=== PATIENT | female | born 1990 | race Caucasian/White ===

== ENCOUNTER 2016-06-04 16:51 | Emergency (ER) | payer MEDICAID, OTHER ==
[~2016-06-04] VITALS: Ht 162.6 cm; Wt 154.2 kg
[~2016-06-04 16:51] MED LIST: ACHYD1T PO; DCS100C PO; IBP600T1 PO; LANS30CA PO; ONDA-42 SL; PNV11TAB PO; VIT
--- OUTSIDE RECORDS SUMMARY | 2016-06-04 16:56 | XMS REPORT ---
Author Author ELMA RAYA [facility] eClinicalWorks Address Unknown Phone Unavailable Care Team Providers Care Product Communications Manager Name Role Phone ELMA RAYA CP Unavailable Allergies No Known Allergies Problems Problem Type Condition Code Onset Dates Condition Status Assessment Family history of diabetes mellitus Z83.3 Active Problem Dysthymia F34.1 Active Problem Amenorrhea N91.2 Active Problem Encounter to establish care Z76.89 Active Problem Family history of diabetes mellitus Z83.3 Active Assessment Amenorrhea N91.2 Active Problem Morbid obesity, unspecified obesity type E66.01 Active Problem History of open heart surgery Z98.89 Active Medications No Known Medications Procedures Procedure Coding System Code Date ASSAY THYROID STIM HORMONE CPT-4 03486 Dec 25, 2015 ASSAY OF INSULIN CPT-4 95031 Dec 25, 2015 ASSAY OF TOTAL TESTOSTERONE CPT-4 09365 Dec 25, 2015 COMPREHEN METABOLIC PANEL CPT-4 92347 Dec 25, 2015 COMPLETE CBC W/AUTO DIFF WBC CPT-4 77797 Dec 25, 2015 VENIPUNCT, ROUTINE* CPT-4 80064 Dec 25, 2015 GLYCATED HEMOGLOBIN TEST CPT-4 16699 Dec 25, 2015 Results No Known Results Summary Purpose eClinicalWorks Submission
[2016-06-04] MEDS ORDERED: RT-ALBUTEROL/IPRATROPIUM 3 ML (DUONEB) VIAL INH ONE ×3 (17:00→17:15)
--- NOTE | 2016-06-04 17:24 | ED Cough/URI ---
General Chief Complaint: Respiratory Problems Stated Complaint: TROUBLE BREATHING Nursing Triage Note: PT C/O COUGH, CONGESTION X 3-4 DAYS. HEAVINESS ON CHEST WORSENING THROUGH TODAY. Source: patient Exam Limitations: no limitations History of Present Illness Time seen by provider: 17:00 Initial Comments 20 scheduled. Patient presents to the emergency department complaints of 3-4 day onset of cough and congestion. Reports progressively worsening shortness of breath. Patient denies a history of smoking, but states her boyfriend does smoke around her. Today reports difficulty taking deep breath, rib pain with coughing, and heaviness on the chest. Patient reports heaviness is due to difficulty taking a full breath. Patient denies fever, but has had chills. Denies a history of asthma. Patient works at [employer] and states several residents have had similar symptoms. Timing/Duration: getting worse, other (3-4 days) Allergies and Home Medications Allergies Coded Allergies: No Known Drug Allergies (Unverified , 06/09/14) Home Medications Albuterol Sulfate 6.7 Gm Hfa.aer.ad #1 2 PUFF IH Q4H PRN PRN SHORTNESS OF BREATH Prescribed by: BLACK AKBAR on 06/04/161854 Azithromycin 250 Mg Tablet #6 250 MG PO UD TAKE 2 TABLETS TODAY, THEN TAKE 1 TABLET DAILY FOR 4 MORE DAYS Prescribed by: BLACK AKBAR on 06/04/161854 Docusate Sodium 100 Mg Cap #40 100 MG PO BID PRN PRN CONSTIPATION Prescribed by: AYAKA HAND on 07/18/14 1024 Hydrocodone Bit/Acetaminophen 1 Ea Tab #50 1-2 EA PO Q3HR PRN PRN PAIN Prescribed by: AYAKA HAND on 07/18/14 1024 Ibuprofen 600 Mg Tab #60 600 MG PO Q6H PRN PRN PAIN Prescribed by: AYAKA HAND on 07/18/14 1024 Lxo474/Iron Fumarate/FA/Dss 1 Each Tablet 1 EACH PO DAILY (Reported) Prednisone 20 Mg Tab #10 40 MG PO DAILY Prescribed by: BLACK AKBAR on 06/04/161854 Constitutional: chillsNo fever, malaise other (fatigue) EENTM: nose congestion throat painNo ear pain Respiratory: see HPI coughNo hemoptysis, short of breath wheezing other ( unable to expel phlegm) Cardiovascular: No chest pain, No edema, No palpitations, No syncope Gastrointestinal: No abdominal pain, No constipation, No diarrhea, loss of appetiteNo nausea, No vomiting Genitourinary: no symptoms reported Musculoskeletal: no symptoms reported Skin: no symptoms reported Psychiatric/Neurological: No Symptoms Reported Immunological/Allergic: no symptoms reported All Other Systems Reviewed Negative Unless Noted: Yes (Negative excepted noted.) Past Mgnzomw-Jdogkh-Faehnw Hx Patient Social History Alcohol Use: Rarely Uses Recreational Drug Use: No Smoking Status: Never a Smoker (patient is exposed to second hand smoke.) Recent Foreign Travel: No Contact w/Someone Who Travel: No Recent Infectious Disease Expo: No Recent Hopitalizations: No Physical Abuse Screen: No Sexual Abuse: No Immunizations Up To Date Tetanus Booster (TDap): Less than 5yrs Date of Influenza Vaccine: Feb 16, 2016 Seasonal Allergies Seasonal Allergies: No Surgeries HX Surgeries: Yes (OPEN HEART FOR LSD) Surgeries: Section, Gallbladder Respiratory Hx Respiratory Disorders: No Cardiovascular Hx Cardiac Disorders: Yes (PTGV,LSD) Neurological Hx Neurological Disorders: No Reproductive System Hx Reproductive Disorders: No Genitourinary Hx Genitourinary Disorders: No Gastrointestinal Hx Gastrointestinal Disorders: Yes Gastrointestinal Disorders: Gastroesophageal Reflux Musculoskeletal Hx Musculoskeletal Disorders: No Endocrine Hx Endocrine Disorders: No HEENT HX ENT Disorders: Yes (GLASSES) Cancer Hx Cancer: No Psychosocial Hx Psychiatric Problems: No Integumentary HX Skin/Integumentary Disorder: No Blood Transfusions Hx Blood Disorders: No Adverse Reaction to a Blood Tr: No Reviewed Nursing Assessment Reviewed/Agree w Nursing PMH: Yes Family Medical History Significant Family History: No Pertinent Family Hx Family Medial History: FH: lung cancer 19 FATHER Respiratory disorder 19 FATHER Physical Exam Vital Signs Vital Sign - Last 12Hours 06/04/16 06/04/16 16:59 17:06 Temp 99.1 Pulse 119 Resp 24 B/P 148/79 Pulse Ox 93 Capillary Refill : Less Than 3 Seconds General Appearance: WD/WN mild distress obese Eyes: Bilateral Eye EOMI, Bilateral Eye Normal Inspection, Bilateral Eye PERRL HEENT: PERRL/EOMI pharyngeal erythema other (Lt TM normal. Rt external ear canal impacted with cerumen. Positive nasal congestion.) Neck: non-tender supple normal inspection Respiratory: respiratory distress (mild respiratory distress) decreased breath sounds other (anterior chest tender to palpation.) Cardiovascular: regular rate, rhythm no murmur Gastrointestinal: normal bowel sounds non tender softNo distended Extremities: no pedal edema normal capillary refill Neurologic/Psychiatric: alert oriented x 3 other (anxious) Skin: normal color warm/dryNo cyanosis, No cool, No diaphoresis, No mottled, No pallor Progress/Results/Core Measures Results/Orders Lab Results Laboratory Tests Test 06/04/16 17:20 Range/Units Alanine Aminotransferase (ALT/SGPT) 17 0-55 U/L Albumin 3.9 3.2-4.5 G/DL Alkaline Phosphatase 55 40-136 U/L Anion Gap 9 5-14 MMOL/L Aspartate Amino Transf (AST/SGOT) 14 5-34 U/L BUN/Creatinine Ratio 10 Basophils # (Auto) 0.0 0.0-0.1 10^3/uL Basophils (%) (Auto) 0 0-10 % Blood Urea Nitrogen 9 7-18 MG/DL Calcium Level 8.7 8.5-10.1 MG/DL Carbon Dioxide Level 24 21-32 MMOL/L Chloride Level 100 98-107 MMOL/L Creatinine 0.91 0.60-1.30 MG/DL Eosinophils # (Auto) 0.0 0.0-0.3 10^3/uL Eosinophils (%) (Auto) 0 0-10 % Estimat Glomerular Filtration Rate > 60 Glucose Level 113 H 70-105 MG/DL Hematocrit 37 35-52 % Hemoglobin 11.5 11.5-16.0 G/DL Lymphocytes # (Auto) 3.0 1.0-4.0 X 10^3 Lymphocytes (%) (Auto) 31 12-44 % Mean Corpuscular Hemoglobin 26 25-34 PG Mean Corpuscular Hemoglobin Concent 31 L 32-36 G/DL Mean Corpuscular Volume 83 80-99 FL Mean Platelet Volume 9.1 7.4-10.4 FL Monocytes # (Auto) 0.7 0.0-1.0 X 10^3 Monocytes (%) (Auto) 7 0-12 % Neutrophils # (Auto) 5.9 1.8-7.8 X 10^3 Neutrophils (%) (Auto) 61 42-75 % Platelet Count 149 130-400 10^3/uL Potassium Level 3.8 3.6-5.0 MMOL/L Red Blood Count 4.40 4.35-5.85 10^6/uL Red Cell Distribution Width 14.7 H 10.0-14.5 % Serum Test, Qualitative NEGATIVE NEGATIVE Sodium Level 133 L 135-145 MMOL/L Total Bilirubin 0.7 0.1-1.0 MG/DL Total Protein 7.3 6.4-8.2 G/DL White Blood Count 9.6 4.3-11.0 10^3/uL Micro Results Microbiology 06/04/16 Influenza Types A,B Antigen (JOSEFINA) - Final, Complete My Orders Orders-BLACK AKBAR PA Albuterol/Ipra Inhalation Soln (Duoneb I (06/04/16 17:00) Svn Sm Volume Nebulizer Rt-Rfs (06/04/16 16:58) Saline Lock/Iv-Start (06/04/16 17:08) Ekg Tracing (06/04/16 17:08) Monitor-Rhythm Ecg Trace Only (06/04/16 17:08) Cbc With Automated Diff (06/04/16 17:08) Comprehensive Metabolic Panel (06/04/16 17:08) Influenza A And B Antigens (06/04/16 17:08) Chest 1 View, Ap/Pa Only (06/04/16 17:08) Albuterol/Ipra Inhalation Soln (Duoneb I (06/04/16 17:15) Svn Sm Volume Nebulizer Rt-Rfs (06/04/16 17:12) Albuterol/Ipra Inhalation Soln (Duoneb I (06/04/16 17:15) Svn Sm Volume Nebulizer Rt-Rfs (06/04/16 17:12) Hcg,Qualitative Serum (06/04/16 17:16) Medications Given in ED Current Medications Medications Dose Ordered Sig/Reba Route Start Time Stop Time Status Last Admin Dose Admin Albuterol/ Ipratropium 3 ml ONCE ONCE INH 06/04/16 17:00 06/04/16 17:01 DC 06/04/16 17:05 3 ML Albuterol/ Ipratropium 3 ml ONCE ONCE INH 06/04/16 17:15 06/04/16 17:16 DC 06/04/16 17:15 3 ML Albuterol/ Ipratropium 3 ml ONCE ONCE INH 06/04/16 17:15 06/04/16 17:16 DC 06/04/16 17:15 3 ML Vital Signs/I&O Vital Sign - Last 12Hours 06/04/16 06/04/16 06/04/16 06/04/16 16:59 17:06 17:15 17:25 Temp 99.1 Pulse 119 Resp 24 B/P 148/79 Pulse Ox 93 94 94 Blood Pressure Mean: 102 ECG Initial ECG Impression Date: Jun 04, 2016 Initial ECG Impression Time: 17:00 Initial ECG Rate: 117 Initial ECG Rhythm: S.Tach Initial ECG Comparisson: No Previous ECG Available Comment sinus tachycardia. No STEMI. ECG reviewed and discussed with Maurice Borjas MD. Diagnostic Imaging Diagonstic Imaging: Xray Plain Films/CT/US/NM/MRI: chest Comments FINDINGS: Cardiomegaly with mildly increased pulmonary vascularity. No focal pulmonary opacity, pleural effusion or pneumothorax. Osseous structures are unremarkable. IMPRESSION: 1. Mild cardiomegaly and increased pulmonary vascularity. 2. No focal pulmonary opacities. Dictated on workstation # [id number] Reviewed: Reviewed by Me (radiology report reviewed by me) Departure Communication Progress Notes 1825 patient shows improved breath sounds bilaterally. Increased aeration bilaterally. Patient reports overall feeling much better. Patient is alert and oriented 3, no acute distress. Chest x-ray pending. 1850 all laboratory findings and diagnostic study findings discussed with the patient. Patient denies shortness of air, chest pain, dizziness. Plan for discharge to home. Impression Impression: Primary Impression: Acute bronchitis Qualified Code: J20.9 - Acute bronchitis, unspecified Disposition: 01 HOME, SELF-CARE Condition: Improved Departure-Patient Inst. Decision time for Depature: 18:52 Referrals: NO,LOCAL PHYSICIAN (PCP/Family) Primary Care Physician Patient Instructions: Acute Bronchitis, Adult (DC) Add. Discharge Instructions: All discharge instructions reviewed with patient and/or family. Voiced understanding. Medications as instructed. Tylenol extra strength over-the- counter as needed for fever or body aches. Ibuprofen 800 mg by mouth every 8 hours as needed for pain or body aches. Drink plenty of fluids. Cool humidifier. [id number] decongestants and and histamines if needed. Follow-up with your family practitioner of choice if no improvement in symptoms in 3-5 days, call for appointment time if needed. Return to the emergency department immediately for worsened shortness of air, fever, vomiting, difficulty swallowing, shortness of air with activity, or any other concerns. Scripts Prednisone 20 Mg Tab40 Mg PO DAILY #10 TAB Ref 0 Prov:BLACK AKBAR 06/04/16 Azithromycin (Zithromax)250 Mg [id number] Mg PO UD #6 TAB Ref 0 TAKE 2 TABLETS TODAY, THEN TAKE 1 TABLET DAILY FOR 4 MORE DAYS Prov:BLACK AKBAR 06/04/16 Albuterol Sulfate (Proventil Hfa)6.7 Gm Hfa.aer.ad2 Puff IH Q4H PRN SHORTNESS OF BREATH #1 EA Ref 0 Prov:BLACK AKBAR 06/04/16 Work/School Note: Local [employer] Staff Listing, Work Release Form Date Seen in the Emergency Department: Jun 04, 2016 Return to Work: Jun 06, 2016 Restrictions: No Restrictions BLACK AKBAR Jun 04, 2016 17:24
[2016-06-04 17:32] LABS: BASOPHILS % (AUTO) 0 % (0-10); EOSINOPHILS % (AUTO) 0 % (0-10); LYMPHOCYTES % (AUTO) 31 % (12-44); MEAN CORPUSCULAR HEMOGLOBIN 26 PG (25-34); MEAN CORPUSCULAR HGB CONC 31 G/DL (32-36); MEAN CORPUSCULAR VOLUME 83 FL (80-99); MEAN PLATELET VOLUME 9.1 FL (7.4-10.4); MONOCYTES # (AUTO) 0.7 X 10^3 (0.0-1.0); MONOCYTES % (AUTO) 7 % (0-12); NEUTROPHILS # (AUTO) 5.9 X 10^3 (1.8-7.8); NEUTROPHILS % (AUTO) 61 % (42-75); PLATELET COUNT 149 10^3/uL (130-400); RED CELL DISTRIBUTION WIDTH 14.7 % (10.0-14.5); WHITE BLOOD COUNT 9.6 10^3/uL (4.3-11.0)
[2016-06-04 17:49] LABS: ALANINE AMINOTRANSFERASE 17 U/L (0-55); ALBUMIN 3.9 G/DL (3.2-4.5); ANION GAP 9 MMOL/L (5-14); ASPARTATE AMINO TRANSFERASE 14 U/L (5-34); BILIRUBIN,TOTAL 0.7 MG/DL (0.1-1.0); BLOOD UREA NITROGEN 9 MG/DL (7-18); BUN/CREATININE RATIO 10; CALCIUM 8.7 MG/DL (8.5-10.1); CARBON DIOXIDE 24 MMOL/L (21-32); CHLORIDE 100 MMOL/L (98-107); CREATININE SERUM 0.91 MG/DL (0.60-1.30); GFR ESTIMATED > 60; GLUCOSE 113 MG/DL (70-105); POTASSIUM 3.8 MMOL/L (3.6-5.0); SODIUM 133 MMOL/L (135-145); TOTAL PROTEIN 7.3 G/DL (6.4-8.2)
--- NOTE | 2016-06-04 18:40 | Diagnostic Imaging Report ---
EXAM: CHEST 1 VIEW, AP/PA ONLY INDICATION: Cough. Congestion. COMPARISON: None. FINDINGS: Cardiomegaly with mildly increased pulmonary vascularity. No focal pulmonary opacity, pleural effusion or pneumothorax. Osseous structures are unremarkable. IMPRESSION: 1. Mild cardiomegaly and increased pulmonary vascularity. 2. No focal pulmonary opacities. Dictated by: Dictated on workstation # [id number]
[2016-06-04] MEDS ORDERED: AZIT250T PO (18:55)
[2016-06-04] MEDS ORDERED: PRD20T PO (18:55)
[2016-06-04] MEDS ORDERED: RT-ALBUINH IH (18:55)
[2016-06-04 19:27] VITALS: BP 100/77
== END 2016-06-04 19:27 | disposition home or self-care (01) ==
LOC: EDUNIT# 16:51 → ER 16:52
DX: J20.9 Acute bronchitis, unspecified (principal); Z77.22 Contact with and (suspected) exposure to environmental tobacco smoke (acute) (chronic)
CPT/HCPCS: 36415; 71010; 80053; 84703; 85025; 87804; 93005; 93041; 94640